=== PATIENT | male | born 1990 | race Caucasian/White ===

== ENCOUNTER 2023-02-13 16:30 | Emergency (ER) | payer BC ==
[2023-02-13] MEDS ORDERED: Lidocaine 1% 5 ML VIAL INJECT ONE (16:32)
[2023-02-13] MEDS ORDERED: Diphtheria,Pertussis(Acell),Tetanus Vaccine 0.5 ML Syringe IM ONE (16:32)
[2023-02-13] MEDS ORDERED: traMADol 50 MG Tab PO ONE (17:03)
== END 2023-02-13 19:13 | disposition home or self-care (01) ==
LOC: MW.ED 16:30
DX: S81.812A Laceration without foreign body, left lower leg, initial encounter (principal); Z23 Encounter for immunization; W20.8XXA Other cause of strike by thrown, projected or falling object, initial encounter
CPT/HCPCS: 12002; 73590; 90471; 90715; 99282; A9270; 99283; J3490